=== PATIENT | male | born 1980 | race African-American/Black ===

== ENCOUNTER 2017-02-24 14:29 | Observation (INO) ==
--- NOTE | 2017-02-24 14:58 | Emergency Department Note ---
Otis Barnett Manpreet, am scribing for, and in the presence of, Roberto Junior MD 14: 57. Sandi Barnett James D, MD, personally performed the services described in this documentation, ascribed by Leopoldo Berg in my presence, and it is both accurate and complete 458 . Arrival - Arrival Chief Complaint: GI Bleed/Rectal Stated Complaint: Bleeding in stool,pain in legs-sides ED Nursing Triage Note: states had a bm this am and it was dark red. +rt side abd pain going into legs with walking. Mode of Arrival: Ambulatory Limitations: No Limitations Source: Patient Time Seen by Provider: 02/24/17 14:50 - History of Present Illness HPI Narrative: Pt is a 37 y/o male who presents to the ED with CC of dark red blood in his stool adn right sided Abd pain which is worse upon movement onset 0300 this AM. Pt denies any fever, chills, or N/V/D. Pt has a PMHx of narcolepsy but has not been taking his mediations. Pt has had 2 BM's since last night. No other pains/ complaints reported to the ED. Onset (ago): hour(s) (at 0300 this AM) Consistency: constant Severity: moderate Severity scale (1-10): 3 Quality: cramping Allergies/Adverse Reactions: Allergies Allergy/AdvReac Type Severity Reaction Status Date / Time No Known Allergies Allergy Verified 01/24/16 09:07 Home Medications: Home Medications Medication Instructions Recorded Confirmed Type Modafinil [Provigil] 200 mg PO DAILY 01/24/16 01/24/16 History Review of System - Review of System 12 point system: reviewed and no additional remarkable complaints except as stated - Review of System Constitutional: Absent: chills, diaphoresis, fever Respiratory: Absent: cough Cardiovascular: Absent: chest pain Gastrointestinal: Present: abdominal pain, nausea. Absent: vomiting, diarrhea Genitourinary male: Absent: dysuria Musculoskeletal: Absent: arm pain, back pain, neck pain Neurological: Absent: headache, weakness, numbness, paresthesias Medical,Surgical,& Family Hx - Family History Family History: Reports;: Family Diabetes - Social History Smoking Status: Smoker, status unknown Frequency of Alcohol Use: None Type of Drug Use: None Exam Vital Signs: Vital Signs Temperature 98.5 F 02/24/17 14:32 Pulse Rate 79 02/24/17 15:45 Respiratory Rate 18 02/24/17 15:45 Blood Pressure 124/89 02/24/17 15:45 O2 Sat by Pulse Oximetry 99 02/24/17 15:45 GENERAL: This is a well-nourished well-developed black male in no apparent distress. VITAL SIGNS: Reviewed HEENT: Head is atraumatic and normocephalic. Pupils are equal round react to light. Extraocular movements are intact. Conjunctiva are pink oropharynx is benign with moist mucous membranes. NECK: Neck is soft and supple without tenderness. There are no masses. There is no lymphadenopathy. LUNGS: Lungs are clear to auscultation. Chest rises symmetrically. There is no chest wall tenderness. CV: Heart is regular rate and rhythm without murmurs rubs or gallops. ABDOMEN: Abdomen is soft, nontender to palpation. There are no abdominal abnormal masses palpated. There is no organomegaly. Bowel sounds are present and active. SKIN: Skin is warm and dry. No rash. EXTREMITIES: Patient has full range of motion without tenderness. There is no pedal edema. NEUROLOGIC: Awake alert and oriented 4. Cranial nerves II through XII are intact. Motor is 5 over 5 in all extremities bilaterally. Course - Consultations Consultation #1: Discussed with hospitalist. Patient will be admitted to their service. Time: 15:59 Results - Labs CBC & BMP: 02/24/17 14:54 02/24/17 14:54 Lab Results: I have reviewed the patients labs - Diagnostic Findings Procedure: Abdominal x-ray: image reviewed by me (Nonspecific gas pattern, no free air, gas in the rectum.) Disposition Clinical Impression: GI bleed Case discussed with: patient Disposition: Still a Patient Condition: Stable
[2017-02-24 15:04] LABS: Basophils % 0.6 % (0.0-0.8); Eosinophils # 0.1 10*3/uL (0.0-0.87); Eosinophils % 1.7 % (0.00-10.9); Hematocrit 40.2 VOL% (42.0-52.0); Hemoglobin 14.1 GM/DL (14.0-18.0); Immature Granulocytes % 0.2 %; Immature Granulocytes Absolute 0.01 #; Lymphocytes # 2.3 10*3/uL (1.4-4.0); Lymphocytes % 47.8 % (21.2-54.2); Mean Corpuscular HGB Conc 35.1 GM/DL (32-36); Mean Corpuscular Hemoglobin 31 PG (27-34); Mean Corpuscular Volume 88.4 FL (87-102); Mean Platelet Volume 10.1 FL (9.6-12.0); Monocytes # 0.5 10*3/uL (0.11-0.8); Monocytes % 9.5 % (1.7-12.7); Neutrophils # 1.9 10*3/uL (1.4-7.4); Neutrophils % 40.2 % (38.7-73.9); Platelet Count 351 T/CUMM (130-400); Red Blood Count 4.55 MC/CUMM (3.8-5.5); White Blood Count 4.7 T/CUMM (4-12)
--- NOTE | 2017-02-24 15:16 | XRay Report ---
XR abdomen 2V Indication: Hematochezia Comparison: None available Findings: No free fluid or free air seen. The bowel gas pattern appears within normal limits. No abnormal calcifications are present. No other abnormality is identified. Impression: No evidence of abnormality demonstrated PROCEDURE INTERPRETED AT [facility] DEPARTMENT OF RADIOLOGY Final Report Signed by: Dr. Leon Balbuena
[2017-02-24 15:17] LABS: Apearance,Urine CLEAR (Clear); Bilirubin,Urine Negative (Negative); Blood, Urine Negative (Negative); Glucose,Urine (UA) Negative (Negative); Ketones,Urine Negative (Negative); Mucus,Urine Occasional /LPF (Occasional); Nitrite,Urine Negative (Negative); Protein,Urine Negative; Urine Color Yellow (Yellow); Urine Specific Gravity 1.019 (1.001-1.035); Urine Urobilinogen < 2.0 EU/DL (0.2-1.0); WBC,Urine 1 /HPF (0-6)
[2017-02-24 15:33] LABS: Albumin 4.2 G/DL (3.4-5.0); Bilirubin,Total 0.5 MG/DL (0.2-1.0); Calcium 9.1 MG/DL (8.5-10.1); Osmolality,Calculated 275.5 MOS/KG (273-304); Potassium 3.8 MMOL/L (3.5-5.1); Total Protein 7.7 G/DL (6.4-8.3)
[2017-02-24 15:47] LABS: INR 1.1; PT Patient Result 11.7 SECS; Partial Thromboplastin Time 28.8 SECS (0-40)
--- NOTE | 2017-02-24 16:26 | Hospitalist History & Physical ---
Assessment and Plan (1) GI bleed Status: Acute Assessment and plan: Admit to monitored bed. Administer IV fluids. Order PPI. Consult GI. Current Visit: Yes (2) Narcolepsy Status: Acute Assessment and plan: Pt. hasn't taken medication in a year. Current Visit: Yes History of Present Illness Chief complaint: rectal bleeding History of present illness: Mr. Major is a 37 year old black male with a pmh of narcolepsy that presents to the ED today for further evaluation of rectal bleeding. Pt. states that early this morning he had 1 diarrhea bowel movement. When he went to [facility], he noted that there was dark red blood. Pt. states he was alarmed but didn't present at that time. Pt. states he went again and his bowel movement was yellow and slimy. Pt. denies fever but state he had mild abdominal pain and chills. Pt. reports a similar episode (with bloody stool) about 6 months ago and states he was seen at [facility] in [place]. He states he doesn't remember what happen during the encounter at [facility] but believes that he was told he had an ulcer. Pt. reports he was on a liquid diet at home briefly and his significant other who is present at bedside confirms. She also adds that he has times when he experiences abd pain only relieved by eating bland foods. Pt. denies any other complaints in the ED at this time. Does confirm narcolepsy but states he has not taken his medication in about a year. Pt denies having a PCP. In ED, pt was noted to have hem pos stool. Pt. has h&h of 14.1/40.2. Case has been discussed with Dr. Junior and Dr. Rodriguez. Pt. will be admitted to the hospitalist program for further eval. Home Medications Medication Instructions Recorded Confirmed Type Modafinil [Provigil] 200 mg PO DAILY 01/24/16 01/24/16 History Allergies Allergy/AdvReac Type Severity Reaction Status Date / Time No Known Allergies Allergy Verified 01/24/16 09:07 Medical,Surgical,& Family Hx - Medical History Neurology: History of: Neurological Problems (narcolepsy) - Family History Family History: Reports;: Family Cancer, Family Diabetes - Social History Smoking Status: Smoker, status unknown Frequency of Alcohol Use: None Type of Drug Use: None Marital Status: Single Lives With:: Significant Other Functional capacity: independent ambulation 12 point system: reviewed and no additional remarkable complaints except as stated - Constitutional Constitutional: Present: chills, weakness. Absent: fever(s) - EENT Eyes: Absent: requires corrective lense Ears: Absent: decreased hearing Nose, mouth and throat: Absent: headache(s) - Cardiovascular Cardiovascular: Absent: chest pain at rest, dyspnea on exertion, edema - Gastrointestinal Gastrointestinal: Present: diarrhea, hematochezia, other. Absent: vomiting - Genitourinary Genitourinary: Absent: difficulty urinating, hematuria - Musculoskeletal Musculoskeletal: Absent: back pain - Neurological Neurological: Absent: confusion, dizziness - Psychiatric Psychiatric: Absent: anxiety, depression - Endocrine Endocrine: Absent: heat intolerance, polyuria - Hematologic/Lymphatic Hematologic/Lymphatic: Absent: easy bruising Exam - Constitutional Vitals: Period Temp Pulse Resp BP Sys/Prasad Pulse Ox Last 24 Hr 98.5 F-98.5 F 75-90 18-18 113-129/73-89 99-100 General appearance: normal weight, no acute distress - Head Head exam: Present: normal inspection, normocephalic - Eye Eye exam: Present: EOMI Pupils: Present: WILLY - Respiratory Respiratory exam: Present: clear to auscultation bilaterally. Absent: wheezes - Cardiovascular Cardiovascular exam: Present: regular rate and rhythm - GI/Abdominal GI/Abdominal exam: Present: normal bowel sounds, soft. Absent: tenderness - Extremities Exam Extremities exam: Present: normal inspection, normal capillary refill, full ROM. Absent: edema - Neurological Exam Neurological exam: Present: alert, oriented X3 - Psychiatric Psychiatric exam: Present: normal affect, normal mood - Skin Skin exam: Present: normal color, warm, dry Results - Labs CBC & BMP: 02/24/17 14:54 02/24/17 14:54 Lab Results: I have reviewed the past 24 hour labs
[2017-02-24] MEDS ORDERED: ONDANSETRON 4 MG/2 ML VIAL IV PRN (17:32)
[2017-02-24] MEDS ORDERED: NICOTINE 21 MG/24 HR PATCH TRANSDERM PRN (17:32)
[2017-02-24] MEDS ORDERED: ACETAMINOPHEN 325 MG TABLET PO PRN (17:32)
[2017-02-24] MEDS: SODIUM CHLORIDE 0.9% 1,000 ML IV SCH (18:14)
[2017-02-24 23:17] LABS: Apearance,Urine CLEAR (Clear); Bilirubin,Urine Negative (Negative); Blood, Urine Negative (Negative); Glucose,Urine (UA) Negative (Negative); Ketones,Urine Negative (Negative); Nitrite,Urine Negative (Negative); Protein,Urine Negative; Urine Color Yellow (Yellow); Urine Specific Gravity 1.012 (1.001-1.035); Urine Urobilinogen < 2.0 EU/DL (0.2-1.0); WBC,Urine <1 /HPF (0-6)
[2017-02-25] MEDS: SODIUM CHLORIDE 0.9% 1,000 ML IV SCH ×3 (01:41→17:16)
[2017-02-25 06:24] LABS: Basophils % 0.4 % (0.0-0.8); Eosinophils # 0.2 10*3/uL (0.0-0.87); Eosinophils % 3.3 % (0.00-10.9); Hematocrit 41.5 VOL% (42.0-52.0); Lymphocytes # 2.2 10*3/uL (1.4-4.0); Lymphocytes % 49.6 % (21.2-54.2); Mean Corpuscular HGB Conc 33.7 GM/DL (32-36); Mean Corpuscular Hemoglobin 30 PG (27-34); Mean Corpuscular Volume 87.7 FL (87-102); Mean Platelet Volume 10.4 FL (9.6-12.0); Monocytes # 0.4 10*3/uL (0.11-0.8); Monocytes % 9.5 % (1.7-12.7); Neutrophils # 1.7 10*3/uL (1.4-7.4); Neutrophils % 37.2 % (38.7-73.9); Platelet Count 348 T/CUMM (130-400); Red Blood Count 4.73 MC/CUMM (3.8-5.5); Red Cell Distribution Width 13.6 % (9.3-17.3); White Blood Count 4.5 T/CUMM (4-12)
[2017-02-25 06:48] LABS: Eosinophils 4 % (0-10); Hypochromasia 1+; Lymphocytes 47 % (20-55); Platelet Estimate Adequate; Segmented Neutrophils 37 % (50-85); Total Cells Counted 100
[2017-02-25 06:49] LABS: Giant Platelets Few
[2017-02-25 07:02] LABS: Calcium 8.8 MG/DL (8.5-10.1); Osmolality,Calculated 276.4 MOS/KG (273-304)
[2017-02-25] MEDS: PANTOPRAZOLE 40 MG TABLET PO SCH (08:33)
--- NOTE | 2017-02-25 08:37 | Gastrointestinal Consult Note ---
<IraBing Jackson - Last Filed: 02/25/17 08:32> Assessment and Plan (1) GI bleed Status: Acute Assessment and plan: 02/25-onset of dark red blood with bowel movement on yesterday with complaints of epigastric pain, increase dyspepsia with a reported prior history of GI bleed 6 months ago. H&H is stable at this time. No prior history of endoscopy. Plan to proceed with EGD tomorrow to further evaluate. Check stools for occult blood. Plan an addendum to follow by Dr. Corea. Current Visit: Yes History of Present Illness Chief complaint: Epigastric pain, rectal bleed History of present illness: Mr. Major is a 37 year old male who was admitted to the hospital on yesterday with onset of rectal bleeding. Patient states that early yesterday morning he was awoke out of his sleep with cramping pain and sensation to have a bowel movement. He states that he had a loose diarrhea stool and after cleaning himself noticed a moderate amount of dark red blood on the tissue. He states that later that morning he had another bowel movement at that time which was yellow and "slimy" without blood noted. He also recalls that over the last several days he has had an increased sensation of epigastric pain with eating. He also reports an increase in dyspepsia with belching and bloating at times as well as increased flatulence. He has a history of a GI bleed 6 months ago which he was seen at [facility] for this. He was referred to GI specialist however he could not afford the recommended EGD at that time and was felt to have an ulcer according to his symptoms. Patient states that he has no dysphagia but has noticed an increase in reflux sensations. He denies any NSAID use and states he only drinks a glass of wine every couple weeks. He does have a history of heavy alcohol use however states he abstained from this approximately a year ago. He also states that over the last year he has had varying episodes of constipation and diarrhea. He has no prior family history of colon cancer. He states that he did have a weight loss however since he was seen at [facility] states he is slowly gaining this back. On admission his H&H is 14/40 with no changes at this time. BUN/creatinine ratio 10. His only home medication is Provigil for history of narcolepsy. Home Medications Medication Instructions Recorded Confirmed Type Modafinil [Provigil] 200 mg PO DAILY 01/24/16 01/24/16 History Allergies Allergy/AdvReac Type Severity Reaction Status Date / Time No Known Allergies Allergy Verified 01/24/16 09:07 Medical,Surgical,& Family Hx - Medical History Psychological: History of: Anxiety Disorders, Depression, Psychiatric/Substance Abuse Tx (marijuana) No history of: ADHD, Behavior Problems, Bipolar Disorder, Previous Suicide Attempt Neurology: History of: Neurological Problems (narcolepsy) - Surgical History Cardiac Surgeries: Patient Denies: Cardiac Catheterization Thoracic Surgeries: Patient denies;: Organ Transplant Neurologic Surgeries: Patient denies: Neurologic Surgery - Family History Family History: Reports;: Family Cancer, Family Diabetes - Social History Smoking Status: Smoker, status unknown Frequency of Alcohol Use: None Type of Drug Use: None 12 point system: reviewed and no additional remarkable complaints except as stated - Constitutional Constitutional: Present: as per HPI - EENT Eyes: Present: as per HPI Ears: Present: as per HPI Nose, mouth and throat: Present: as per HPI - Cardiovascular Cardiovascular: Present: as per HPI - Respiratory Respiratory: Present: as per HPI - Gastrointestinal Gastrointestinal: Present: as per HPI, abdominal pain, bloating, change in bowel habits, diarrhea, dyspepsia, heartburn, hematochezia, loose stools - Genitourinary Genitourinary: Present: as per HPI - Musculoskeletal Musculoskeletal: Present: as per HPI - Neurological Neurological: Present: as per HPI - Psychiatric Psychiatric: Present: as per HPI - Endocrine Endocrine: Present: as per HPI - Hematologic/Lymphatic Hematologic/Lymphatic: Present: as per HPI Exam - Constitutional Vitals: Period Temp Pulse Resp BP Sys/Prasad Pulse Ox Last 24 Hr 97.6 F-98.5 F 64-90 16-20 108-129/52-89 97-100 General appearance: normal weight, no acute distress - Head Head exam: Present: normal inspection, normocephalic - Eye Eye exam: Present: other (Lids and conjunctive are unremarkable). Absent: scleral icterus - ENT ENT exam: Present: normal exam, normal oropharynx - Neck Neck exam: Present: normal inspection - Respiratory Respiratory exam: Present: clear to auscultation bilaterally. Absent: rales, rhonchi, wheezes - Cardiovascular Cardiovascular exam: Present: regular rate and rhythm. Absent: diastolic murmur , JVD, systolic murmur - GI/Abdominal GI/Abdominal exam: Present: normal bowel sounds, soft. Absent: ascites, distended, mass, organomegaly, tenderness - Extremities Exam Extremities exam: Present: normal inspection, full ROM - Back Exam Back exam: Present: normal inspection - Neurological Exam Neurological exam: Present: alert, oriented X3 - Psychiatric Psychiatric exam: Present: normal affect, normal mood - Skin Skin exam: Present: normal color, warm, dry Results - Labs CBC & BMP: 02/25/17 05:23 02/25/17 05:23 Lab Results: I have reviewed the past 24 hour labs - Diagnostic Findings Procedure: Abdominal x-ray: report reviewed by me <Cortez Corea - Last Filed: 02/25/17 20:00> History of Present Illness Chief complaint: 3030 History of present illness: Mr. Major is a 37 year old male Exam - Constitutional Vitals: Period Temp Pulse Resp BP Sys/Prasad Pulse Ox Last 24 Hr 97.1 F-97.8 F 59-80 16-20 113-124/52-75 97-100 Results - Labs CBC & BMP: 02/25/17 05:23 02/25/17 05:23
--- NOTE | 2017-02-25 16:22 | Hospitalist Progress Note ---
Hospitalist: Subjective Interval history: 37-year-old male who was admitted for evaluation of abdominal pain and some rectal bleeding yesterday. He has been seen by GI and scheduled for an EGD in the morning. His abdominal pain is little better today. Exam - Constitutional Vitals: Period Temp Pulse Resp BP Sys/Prasad Pulse Ox Last 24 Hr 97.1 F-97.9 F 59-80 16-20 108-129/52-87 97-100 Exam: General: No Acute Distress HEENT: Normocephalic, atraumatic, Extra ocular movements intact Neck: Supple, No JVD Chest: Clear to auscultation B/L CV: S1 + S2 audible without murmur, gallop or rub Abd: soft, NT, Non-distended, BS + Ext: No edema Skin: No purpura, bruising or rash Rheumatologic: No Joint deformities Neurologic: Strength 5/5 all extremities, no gross sensory deficits Results - Labs CBC & BMP: 02/25/17 05:23 02/25/17 05:23 - Impressions Assessment and Plan: (1) GI bleed Status: Acute Assessment and plan: Patient scheduled by GI for an EGD in the morning. Continue Protonix. Current Visit: Yes (2) Narcolepsy Status: Chronic Assessment and plan: Pt. hasn't taken medication in a year. Current Visit: No
[2017-02-26] MEDS: SODIUM CHLORIDE 0.9% 1,000 ML IV SCH ×3 (00:43→16:55)
[2017-02-26] MEDS ORDERED: LIDOCAINE 2% 5 ML VIAL ONE (09:00)
[2017-02-26] MEDS ORDERED: PHENYLEPHRINE 1 MG/10 ML SYRINGE IV ONE (09:00)
[2017-02-26] MEDS ORDERED: PROPOFOL 200 MG/20 ML VIAL IV ONE (09:00)
--- NOTE | 2017-02-26 10:39 | History and Physical Update ---
History and Physical Update - Physical Exam Mental Status: alert and oriented Heart: regular rate and rhythm Lung: clear to auscultation Abdomen: within normal limits Vitals: within normal limits
[2017-02-26] MEDS: PANTOPRAZOLE 40 MG TABLET PO SCH ×2 (10:43→11:45)
--- NOTE | 2017-02-26 10:52 | Operative Note ---
Date of procedure: 02/26/17 Pre-op diagnosis: Possible peptic ulcer disease Procedure: EGD with biopsy 37-year-old black male with complaints of abdominal pain and melenic stools now for upper endoscopy to further evaluate. Informed consent was obtained the patient He was sedated with general anesthesia per anesthesia protocol. Patient was placed in left lateral decubitus position the Olympus flexible video upper endoscope was inserted into the oral cavity under direct vision the esophagus was intubated. Findings: Esophagus-exudative esophagitis suspicious for Laxmi was identified. Remaining esophagus was essentially normal. Stomach-nodular gastritis seen biopsies were taken. No bleeding no ulcer seen to direct or retroflexed views of the body fundus cardia or antrum the stomach. Pylorus-normal Duodenum-normal to the bulb and duodenum to the third portion of duodenum. The procedure was terminated the patient tolerated procedure well. Postop diagnosis: 1. Nodular gastritis-continue PPI treatment follow-up biopsy-positive for H. pylori we will treat 2. Candidal esophagitis-add Diflucan check HIV status. Anesthesia: other (General) Surgeon / Physician: Cortez Corea Specimens: other (Nodular gastritis) Condition: stable Disposition: post procedure unit Results - Labs CBC & BMP: 02/25/17 05:23 02/25/17 05:23 Discharge Plan - Discharge Medications No Action Modafinil [Provigil] 200 mg PO DAILY - Follow Up or Referral - Forms/Instructions
--- NOTE | 2017-02-26 10:55 | Anesthesia Post-Op ---
Anesthesia Post OP - Post Ansesthetic Evaluation Patient seen in post op: Yes Resp: within normal limits CV: within normal limits Mental: within normal limits Temp: within normal limits [id number]: within normal limits Nausea and Vomiting: within normal limits Pain: within normal limits
[2017-02-26] MEDS: FLUCONAZOLE 100 MG TABLET PO SCH (11:41)
[2017-02-26 12:11] LABS: HIV Antigen/Antibody Result Nonreactive (Nonreactive)
[2017-02-26] MEDS ORDERED: ALUMINUM/MAGNES/SIMETH MAX STR 30 ML UDCUP PO PRN (13:11)
--- NOTE | 2017-02-26 16:27 | Hospitalist Progress Note ---
Hospitalist: Subjective Interval history: Patient is awake and comfortable has mild abdominal discomfort. Exam - Constitutional Vitals: Period Temp Pulse Resp BP Sys/Prasad Pulse Ox Last 24 Hr 96.5 F-98 F 60-81 15-20 96-126/46-90 95-100 Exam: General: No Acute Distress HEENT: Normocephalic, atraumatic, Extra ocular movements intact Neck: Supple, No JVD Chest: Clear to auscultation B/L CV: S1 + S2 audible without murmur, gallop or rub Abd: soft, NT, Non-distended, BS + Ext: No edema Skin: No purpura, bruising or rash Rheumatologic: No Joint deformities Neurologic: Strength 5/5 all extremities, no gross sensory deficits Results - Labs CBC & BMP: 02/25/17 05:23 02/25/17 05:23 - Impressions Assessment and Plan: (1) UGI bleed Status: Acute Assessment and plan: Patient patient had EGD done 02/26, which revealed nodular gastritis and Laxmi esophagitis, continue Protonix and Diflucan Current Visit: Yes (2) Narcolepsy Status: Chronic Assessment and plan: Pt. hasn't taken medication in a year. Current Visit: No
[2017-02-27] MEDS: SODIUM CHLORIDE 0.9% 1,000 ML IV SCH (03:40)
[2017-02-27] MEDS: PANTOPRAZOLE 40 MG TABLET PO SCH (08:21)
[2017-02-27] MEDS: FLUCONAZOLE 100 MG TABLET PO SCH (08:22)
--- NOTE | 2017-02-27 08:40 | Gastrointestinal Progress Note ---
<SeferinocarlosbarbaraBing Jackson - Last Filed: 02/27/17 08:38> Assessment and Plan (1) GI bleed Status: Acute Assessment and plan: 02/26-no reports of GI bleeding. EGD findings noted as below. HIV status negative. Advance to full liquid diet. Stools negative for occult blood 3 awaiting H. pylori biopsy. Plan an addendum follow Dr. Corea. 02/25-onset of dark red blood with bowel movement on yesterday with complaints of epigastric pain, increase dyspepsia with a reported prior history of GI bleed 6 months ago. H&H is stable at this time. No prior history of endoscopy. Plan to proceed with EGD tomorrow to further evaluate. Check stools for occult blood. Plan an addendum to follow by Dr. Corea. Gastroenterology - PN: Subj Interval history: CC: Abdominal pain Patient is seen awake alert sitting up in bed. States that he had a restful night. He is tolerating clear liquid diet with improved appetite. He does state that he still has some nausea and some discomfort with eating at times but this is slowly improving. He would like to improve his diet today. EGD results noted with nodular gastritis with H. pylori biopsy pending as well as findings of esophageal Laxmi. HIV is negative. Abdomen soft, nontender. No reports of overt bleeding. ROS: Denies shortness of breath or chest pain Exam (Progress Note) - Constitutional Vitals: Period Temp Pulse Resp BP Sys/Prasad Pulse Ox Last 24 Hr 96.6 F-98 F 56-75 15-20 96-126/46-85 95-99 General appearance: normal weight, no acute distress - Head Head exam: Present: normal inspection, normocephalic - Eye Eye exam: Present: other (Lids and identified unremarkable). Absent: scleral icterus - ENT ENT exam: Present: normal exam, normal oropharynx - Neck Neck exam: Present: normal inspection - Respiratory Respiratory exam: Present: clear to auscultation bilaterally. Absent: rales, rhonchi, wheezes - Cardiovascular Cardiovascular exam: Present: regular rate and rhythm. Absent: diastolic murmur , JVD, systolic murmur - GI/Abdominal GI/Abdominal exam: Present: normal bowel sounds, soft. Absent: ascites, distended, mass, organomegaly, tenderness - Extremities Exam Extremities exam: Present: normal inspection, full ROM - Back Exam Back exam: Present: normal inspection - Neurological Exam Neurological exam: Present: alert, oriented X3 - Psychiatric Psychiatric exam: Present: normal affect, normal mood - Skin Skin exam: Present: normal color, warm, dry Results - Labs CBC & BMP: 02/25/17 05:23 02/25/17 05:23 Lab Results: I have reviewed the past 24 hour labs Specialty Discharge - Follow Up or Referrals Follow up with: Cortez Corea MD [Physician] - 1 Month <Cortez Corea - Last Filed: 02/27/17 16:27> Exam (Progress Note) - Constitutional Vitals: Period Temp Pulse Resp BP Sys/Prasad Pulse Ox Last 24 Hr 97.1 F-98.6 F 56-75 16-20 115-132/71-85 98-99 Results - Labs CBC & BMP: 02/25/17 05:23 02/25/17 05:23
--- NOTE | 2017-02-27 11:20 | Pathology Report from [facility] ---
[facility] ACCESSION # : [id number] PATIENT NAME : Marty Schaffer ORDERING DR : CICI NIELSEN MD CLINICAL HX: Melena POST-OP DX: Nodular gastritis SPECIMEN INFO: Gastric biopsies GROSS DESCRIPTION: The specimen is received in formalin labeled with the patients name and consists of a 0.4 x 0.2 cm light carranza mucosal tissue fragment. Submitted in one cassette. DIAGNOSIS FOR MARTY SCHAFFER: GASTRIC BIOPSY: Chronic gastritis. No evidence of malignancy. H. pylori not seen on H&E or special stain with appropriate control. COLLECTED DATE: 02/26/2017 [facility] REPORT DATE: 02/27/2017 ELECTRONICALLY SIGNED BY: Katie Kaufman III, M.D. 02/27/2017 - 8:29:34 MTDJackson
--- NOTE | 2017-02-27 12:12 | Discharge Summary ---
Hospital Course - Hospital Course Hospital Course: 37 year old AAM with h/o of narcolepsy that presented to the ED today for further evaluation of rectal bleeding. Pt. stated that early this morning he had 1 diarrhea bowel movement. When he went to [facility], he noted that there was dark red blood. Pt. stated that he was alarmed but didn't present at that time. Pt. stated he went again and his bowel movement was yellow and slimy. Pt. denied fever but stated he had mild abdominal pain and chills. Pt. reported a similar episode (with bloody stool) about 6 months ago and stated he was seen at [facility] in [place]. He states he doesn't remember what happened during the encounter at [facility] but believes that he was told he had an ulcer. Pt. reported he was on a liquid diet at home briefly. Patient has narcolepsy but has not taken his medication in about a year. Patient was admitted to the hospital service and GI service was consulted. An EGD was performed which revealed Laxmi esophagitis and gastritis. Patient is doing well on these. He is tolerating liquid diet only has mild nausea on occasionally but no vomiting, normal pain is better. He has reached maximal hospital benefit and being discharged home on medication. - Time spent with patient Time with patient DS: Less than 30 minutes Diagnosis - Discharge Diagnosis (1) GI bleed Status: Resolved Discharge Plan - Discharge Data Condition at Discharge: Stable Discharge Diet: advance to your usual diet Activity: resume usual activities as tolerated Hygiene: no restrictions Weight Bearing at Discharge: full weight bearing Driving: no restrictions Contact your physician if you experience:: Nausea/Vomiting - Discharge Medications New Fluconazole Tab [Diflucan Tab] 100 mg PO DAILY #14 tablet Nicotine 21 mg/24 Hr Patch [Nicoderm CQ 21 mg/24 hr Patch] 1 patch TRANSDERM DAILY PRN #30 patch PRN Reason: Nicotine Cravings Pantoprazole Tab [Protonix Tab] 40 mg PO DAILY #30 tablet Ondansetron Tab [Zofran Tab] 4 mg PO Q6H PRN #30 tablet PRN Reason: nausea Continue Modafinil [Provigil] 200 mg PO DAILY - Follow Up or Referral Follow Up: Cortez Corea MD [Physician] - 1 Month - Forms/Instructions Exam - Constitutional Vitals: Period Temp Pulse Resp BP Sys/Prasad Pulse Ox Last 24 Hr 96.6 F-97.2 F 56-75 18-20 100-126/64-85 97-99 Exam: General: No Acute Distress HEENT: Normocephalic, atraumatic, Extra ocular movements intact Neck: Supple, No JVD Chest: Clear to auscultation B/L CV: S1 + S2 audible without murmur, gallop or rub Abd: soft, NT, Non-distended, BS + Ext: No edema Skin: No purpura, bruising or rash Rheumatologic: No Joint deformities Neurologic: Strength 5/5 all extremities, no gross sensory deficits Discharge Results Labs on day of discharge: Labs from last 24 hours 02/26/17 05:23 HIV 1&2 Antigen & Ab Nonreactive DS: Provider Date of admission: 02/24/17 16:37 Primary care physician: . No PCP Attending physician on admission: Shonda Rodriguez MD Consults: 02/24/17 18:36 Consult to Physician [CONS] Routine Comment: gi bleed Consulting Provider: Cortez Corea When should Consulting Provider be notified: In am Person Notified: Bing Roth Date Notified: 02/25/17 Time Notified: 08:21 Discharging clinician: Shonda Rodriguez MD
[2017-02-27 12:42] VITALS: BP 132/72
--- NOTE | 2017-02-27 18:20 | Pathology Report from [facility] ---
[facility] ACCESSION # : [id number] PATIENT NAME : Marty Schaffer ORDERING DR : CICI NIELSEN MD CLINICAL HX: Melena POST-OP DX: Nodular gastritis SPECIMEN INFO: Gastric biopsies GROSS DESCRIPTION: The specimen is received in formalin labeled with the patients name and consists of a 0.4 x 0.2 cm light carranza mucosal tissue fragment. Submitted in one cassette. DIAGNOSIS FOR MARTY SCHAFFER: GASTRIC BIOPSY: Chronic gastritis. No evidence of malignancy. H. pylori not seen on H&E or special stain with appropriate control. COLLECTED DATE: 02/26/2017 [facility] REPORT DATE: 02/27/2017 ELECTRONICALLY SIGNED BY: Katie Kaufman III, M.D. 02/27/2017 - 8:29:34 MTDJackson
== END 2017-02-27 13:10 | disposition home or self-care (01) ==
LOC: N.ED 14:29 → N.EDINP 15:59 → INTOOBSV 15:59 → SUATTDRO 16:37 → N.EDINP 17:21 → N.5E 17:30
PROVIDERS: ADMIT Hospitalist; ATTEND Internal Medicine Infectious Disease